=== PATIENT | male | born 1945 | race Caucasian/White ===

== ENCOUNTER 2018-06-25 17:08 | Day surgery (SDC) | payer OTHER ==
[2018-06-25 17:58] VITALS: BMI 28.5
--- NOTE | 2018-06-25 18:20 | PDOC ---
Documentation entered by Abdelrahman Mccloud SCRIBE, acting as scribe for Tia Sorto MD. Tia Sorto MD: This documentation has been prepared by the Rogers angulo Daniel, SCRIBE, under my direction and personally reviewed by me in its entirety. I confirm that the documentation accurately reflects all work, treatment, procedures, and medical decision making performed by me. History of Present Illness - General Chief Complaint: Injury Stated Complaint: LEFT KNEE PAIN History Source: Patient Exam Limitations: No Limitations - History of Present Illness Initial Comments: 06/25/18 18:04 The patient is a 73 year old male with a past medical history of depression and HLD here today for evaluation of left knee pain. The patient reports that tripped over a curb when crossing over a fence and fell on his left knee. He reports that he has pain, swelling, and limited range of motion due to the pain in his left knee, unable to ambulate with obvious swelling and deformity. no LOC or head injury. no prodromal sx. Patient denies headache, lightheadedness. Denies fever, chills. Denies chest pain, shortness of breath. Denies nausea, vomiting, diarrhea, abdominal pain. no paresthesias or weakness. Allergies: NKA PMD Dr Paredes 06/25/18 18:43 06/25/18 18:44 Past History - Past Medical History Allergies/Adverse Reactions: Allergies Allergy/AdvReac Type Severity Reaction Status Date / Time No Known Allergies Allergy Verified 06/25/18 17:10 Home Medications: Ambulatory Orders Fluoxetine HCl [Prozac] 10 mg PO DAILY 04/04/12 Simvastatin [Zocor] 20 mg PO HS 04/04/12 Hypercholesterolemia: Yes - Immunization History Immunization Up to Date: No - Suicide/Smoking/Psychosocial Hx Smoking Status: No Smoking History: Former smoker Have you smoked in the past 12 months: No Number of Cigarettes Smoked Daily: 0 Hx Alcohol Use: No Drug/Substance Use Hx: No Review of Systems - Review of Systems Able to Perform ROS?: Yes Comments:: 06/25/18 18:04 Constitutional: no fevers or chills. HEENT: no headache or dizziness. No congestion. No visual/hearing disturbances. CVS: no cp or syncope. Resp: no sob. No cough. Gastrointestinal: no abdominal pain, nausea or vomiting. Genitourinary: no urinary sx, hematuria. MUSCULOSKELETAL: +left knee pain and swelling. No neck or back pain. SKIN: no redness or skin changes, no discharge, no rash. No wounds. Hematologic: no easy bruising/bleeding. NEUROLOGIC: No headache, dizziness, LOC or altered mental status. No weakness, numbness or tingling. Psych: no anxiety or depression Allergic/Immunologic: no allergies All other systems reviewed and negative, or as documented in HPI. *Physical Exam - Vital Signs Last Vital Signs Temp Pulse Resp BP Pulse Ox 98.1 F 58 L 20 141/79 98 06/25/18 17:09 06/25/18 17:09 06/25/18 17:09 06/25/18 17:09 06/25/18 17:09 - Physical Exam Comments: 06/25/18 18:05 General: GCS 15 NAD, well appearing HEENT: NCAT, PERRL, EOMI. Airway intact. Neck: neck supple, ROM intact. Resp: Lungs clear bilaterally Chest: no clavicle or chest wall tenderness or crepitus CVS: RRR, 2+ pulses throughout. Abdomen: Abdomen soft, nontender, nondistended. Back: Back nontender, no midline spinal tenderness along cervical/thoracic/ lumbar spine, FROM, no stepoffs. MSK: Pelvis stable, Extremities symmetric +left knee tenderness with obvious deformity with crepitus of the left patella. +limited range of motion secondary to pain. +large effusion of left knee. soft compartment. no calf tenderness. 5/5 plantar and dorsiflexion. SILT. no laxity at knee jt. 2+ DP pulses bilaterally. Neuro: Alert, oriented appropriatelyno focal neuro deficits. Sensation and strength intact throughout. Skin: intact, normal color and well perfused. 06/25/18 18:44 06/25/18 18:50 ED Treatment Course - RADIOLOGY Radiology Studies Ordered: Category Date Time Status KNEE 4 POS-LEFT [RAD] Stat Radiology 06/25/18 17:12 Taken Medical Decision Making - Medical Decision Making 06/25/18 18:18 VS reviewed, wnl Xray left knee with normal joint space alignment, +acute fracture with displacement and widening of patella. +moderate joint effusion. declined analgesia knee immobilizer provided for immobilization, rest ice and elevate extremity. ortho cs with Dr Ulloa, operation can be arranged tomorrow at [facility] NPO after midnight. preop labs, txs, ekg. admit to hospitalist service observation for operative management of patella fx. s/o to [facility], admit to [facility] under Dr Garza 06/25/18 18:49 06/25/18 18:49 *DC/Admit/Observation/Transfer Diagnosis at time of Disposition: Left patella fracture Qualifiers: Encounter type: initial encounter Fracture type: closed Fracture morphology: unspecified fracture morphology Fracture alignment: displaced Qualified Code(s) : S82.002A - Unspecified fracture of left patella, initial encounter for closed fracture - Discharge Dispostion Condition at time of disposition: Fair Decision to Admit order: Yes Decision to Admit order Date/Time: Decision to Admit Order Category Date Time Status Decision to Admit to Hospital Routine Admission 06/25/18 18:16 Ordered - Referrals Referrals: Justice Cerrato MD [Primary Care Provider] - - Patient Instructions - Post Discharge Activity
[2018-06-25 19:23] LABS: BASO % 2.1 % (0-2.0); EOS % 2.5 % (0-4.5); HEMATOCRIT 45.2 % (35.4-49); MCH 30.5 pg (25.7-33.7); MCHC 33.1 g/dl (32.0-35.9); MEAN CELL VOLUME 92.1 fl (80-96); MEAN PLT VOLUME 10.2 fl (7.5-11.1); MONO % 6.9 % (3.8-10.2); NEUT % 76.5 % (42.8-82.8); PLATELET COUNT 159 K/MM3 (134-434); RBC 4.91 M/mm3 (4.00-5.60); RDW 12.5 % (11.9-15.9); WHITE BLOOD COUNT 9.3 K/mm3 (4.0-10.8)
[2018-06-25 19:32] LABS: ALBUMIN 4.3 g/dl (3.4-5.0); BILIRUBIN,TOTAL 0.7 mg/dl (0.2-1); CREATININE 0.9 mg/dl (0.55-1.3); TOT PROT 7.4 g/dl (6.4-8.2)
[2018-06-25 19:34] LABS: POTASSIUM 5.5 mmol/L (3.5-5.1)
[2018-06-25] MEDS ORDERED: SODIUM POLYSTYRENE SULFONATE 15 GM/60 ML BOTTLE PO ONE (19:35)
[2018-06-25 19:36] LABS: INR 1.04 (0.82-1.09); PROTHROMBIN TIME (PATIENT) 11.6 SEC (10.2-13.0)
--- NOTE | 2018-06-25 21:15 | HP ---
CHIEF COMPLAINT: L- Knee Pain PCP: Justice Cerrato HISTORY OF PRESENT ILLNESS: This is a 73 y/o man who is active goes to the gym 3x/week. Who presents to the ED with left knee pain after falling from climbing a fence. Patient reports doping a 3 mi walk and attempted to climb a fence, missed his footing and fell onto his knee. He denies LOC. Patient denies numbness, tingling to his left leg. Patient denies fever, chills, cough, SIERRA, dizziness, SOB, CP, palpitations, AP, N/V/D, constipation, dysuria. ER course was notable for: (1) Left Knee Xray- Displaced left patellar fx (2) K- 5.5 (3) Recent Travel: None PAST MEDICAL HISTORY: Hyperlipidemia Depression PAST SURGICAL HISTORY: Angiogram Social History: Smoking: Former 40 yrs ago Alcohol: Former Drugs: Denies Family History: Allergies No Known Allergies Allergy (Verified 06/25/18 17:10) HOME MEDICATIONS: Home Medications Medication Instructions Recorded Fluoxetine HCl [Prozac] 10 mg PO DAILY 04/04/12 Simvastatin [Zocor] 20 mg PO HS 04/04/12 REVIEW OF SYSTEMS CONSTITUTIONAL: Absent: fever, chills, diaphoresis, generalized weakness, malaise, loss of appetite, weight change HEENT: Absent: rhinorrhea, nasal congestion, throat pain, throat swelling, difficulty swallowing, mouth swelling, ear pain, eye pain, visual changes CARDIOVASCULAR: Absent: chest pain, syncope, palpitations, irregular heart rate, lightheadedness , peripheral edema RESPIRATORY: Absent: cough, shortness of breath, dyspnea with exertion, orthopnea, wheezing, stridor, hemoptysis GASTROINTESTINAL: Absent: abdominal pain, abdominal distension, nausea, vomiting, diarrhea, constipation, melena, hematochezia GENITOURINARY: Absent: dysuria, frequency, urgency, hesitancy, hematuria, flank pain, genital pain MUSCULOSKELETAL: left knee pain, joint swelling Absent: myalgia, arthralgia, back pain, neck pain SKIN: Absent: rash, itching, pallor HEMATOLOGIC/IMMUNOLOGIC: Absent: easy bleeding, easy bruising, lymphadenopathy, frequent infections ENDOCRINE: Absent: unexplained weight gain, unexplained weight loss, heat intolerance, cold intolerance NEUROLOGIC: Absent: headache, focal weakness or paresthesias, dizziness, unsteady gait, seizure, mental status changes, bladder or bowel incontinence PSYCHIATRIC: Absent: anxiety, depression, suicidal or homicidal ideation, hallucinations. PHYSICAL EXAMINATION Vital Signs - 24 hr 06/25/18 17:09 Temperature 98.1 F Pulse Rate 58 L Respiratory 20 Rate Blood Pressure 141/79 O2 Sat by Pulse 98 Oximetry (%) GENERAL: Awake, alert, and fully oriented, in no acute distress. HEAD: Normal with no signs of trauma. EYES: Pupils equal, round and reactive to light, extraocular movements intact, sclera anicteric, conjunctiva clear. No lid lag. EARS, NOSE, THROAT: Ears normal, nares patent, oropharynx clear without exudates. Moist mucous membranes. NECK: Normal range of motion, supple without lymphadenopathy, JVD, or masses. LUNGS: Breath sounds equal, clear to auscultation bilaterally. No wheezes, and no crackles. No accessory muscle use. HEART: Regular rate and rhythm, normal S1 and S2 without murmur, rub or gallop. ABDOMEN: Soft, nontender, not distended, normoactive bowel sounds, no guarding, no rebound, no masses. No hepatomegaly or splenomegaly. MUSCULOSKELETAL: Normal range of motion at RUE, RLE, LUE joints. No CVA tenderness. Limited LLE. + deformities or tenderness, edema. + Knee Immbolizer UPPER EXTREMITIES: 2+ pulses, warm, well-perfused. No cyanosis. No clubbing. No peripheral edema. LOWER EXTREMITIES: 2+ pulses, warm, well-perfused. No calf tenderness. No peripheral edema. NEUROLOGICAL: Cranial nerves II-XII intact. Normal speech. Gait not observed. PSYCHIATRIC: Cooperative. Good eye contact. Appropriate mood and affect. SKIN: Warm, dry, normal turgor, no rashes or lesions noted, normal capillary refill. Laboratory Results - last 24 hr 06/25/18 06/25/18 06/25/18 19:08 19:08 19:08 WBC 9.3 RBC 4.91 Hgb 15.0 Hct 45.2 MCV 92.1 MCH 30.5 MCHC 33.1 RDW 12.5 Plt Count 159 MPV 10.2 Absolute Neuts (auto) 7.2 Neutrophils % 76.5 Lymphocytes % 12.0 Monocytes % 6.9 Eosinophils % 2.5 Basophils % 2.1 H PT with INR INR PTT (Actin FS) 25.6 Sodium 135 L Potassium 5.5 H Chloride 100 Carbon Dioxide 25 Anion Gap 10 BUN 18 Creatinine 0.9 Est GFR (CKD-EPI)AfAm 97.86 Est GFR (CKD-EPI)NonAf 84.43 Random Glucose 110 H Calcium 10.0 Total Bilirubin 0.7 AST 33 ALT 30 Alkaline Phosphatase 56 Total Protein 7.4 Albumin 4.3 06/25/18 19:08 WBC RBC Hgb Hct MCV MCH MCHC RDW Plt Count MPV Absolute Neuts (auto) Neutrophils % Lymphocytes % Monocytes % Eosinophils % Basophils % PT with INR 11.6 INR 1.04 PTT (Actin FS) Sodium Potassium Chloride Carbon Dioxide Anion Gap BUN Creatinine Est GFR (CKD-EPI)AfAm Est GFR (CKD-EPI)NonAf Random Glucose Calcium Total Bilirubin AST ALT Alkaline Phosphatase Total Protein Albumin ASSESSMENT/PLAN: This is a 73 y/o man placed in Observation for Displaced Left Patellar Fracture for further evaluation of their emergent condition. Plan: See Problem List FEN D51/2NS@75ml/hr Replete lytes prn NPO DVT ppx SCDs Dispo: Observation Problem List - Problem (1) Left patella fracture Assessment/Plan: s/p fall L- knee xray- left patella fx, joint effusion Appreciate Ortho consult- notified by ED attending- OR tomorrow Knee Immobilizer Elevate extremity NPO after midnight IVF Morphine Sulfate prn CBC, BMP in am EKG- junctional rhythm 47 bpm, new compared to prior study SB Consider Cardiology consult for surgical clearance Code(s): S82.002A - UNSP FRACTURE OF LEFT PATELLA, INIT FOR CLOS FX Qualifiers: Encounter type: initial encounter Fracture type: closed Fracture morphology: unspecified fracture morphology Fracture alignment: displaced Qualified Code(s): S82.002A - Unspecified fracture of left patella, initial encounter for closed fracture (2) Hyperkalemia Assessment/Plan: Kayexalate po x1 now EKG reviewed- no peaked Ts Repeat BMP in am Code(s): E87.5 - HYPERKALEMIA (3) Depression Assessment/Plan: stable Continue Prozac Code(s): F32.9 - MAJOR DEPRESSIVE DISORDER, SINGLE EPISODE, UNSPECIFIED (4) HLD (hyperlipidemia) Assessment/Plan: stable Continue home med Code(s): E78.5 - HYPERLIPIDEMIA, UNSPECIFIED Visit type - Emergency Visit Emergency Visit: Yes ED Registration Date: 06/25/18 Care time: The patient presented to the Emergency Department on the above date and was hospitalized for further evaluation of their emergent condition. - New Patient This patient is new to me today: Yes Date on this admission: 06/25/18 - Critical Care Critical Care patient: No
[2018-06-25] MEDS: ATORVASTATIN CA 10 MG TABLET (FP) PO SCH (22:06)
--- NOTE | 2018-06-26 07:52 | PN ---
Physical Exam: SUBJECTIVE: Patient seen and examined at bedside. Pain is controlled. OBJECTIVE: Vital Signs Period Temp Pulse Resp BP Sys/[place] Pulse Ox Last 24 Hr 98.1 F-98.2 F 56-60 18-20 127-141/67-79 97-99 GENERAL: The patient is awake, alert, and fully oriented, in no acute distress. LUNGS: Breath sounds equal, clear to auscultation bilaterally, no wheezes, no crackles, no accessory muscle use. HEART: Regular rate and rhythm, S1, S2 ABDOMEN: Soft, nontender, nondistended EXTREMITIES: left leg in immobilizer; left foot warm, well-perfused, 2+DP pulse NEUROLOGICAL: Cranial nerves II through XII grossly intact. Normal speech, gait not observed. Laboratory Results - last 24 hr 06/25/18 06/25/18 06/25/18 19:08 19:08 19:08 WBC 9.3 RBC 4.91 Hgb 15.0 Hct 45.2 MCV 92.1 MCH 30.5 MCHC 33.1 RDW 12.5 Plt Count 159 MPV 10.2 Absolute Neuts (auto) 7.2 Neutrophils % 76.5 Lymphocytes % 12.0 Monocytes % 6.9 Eosinophils % 2.5 Basophils % 2.1 H PT with INR INR PTT (Actin FS) 25.6 Sodium 135 L Potassium 5.5 H Chloride 100 Carbon Dioxide 25 Anion Gap 10 BUN 18 Creatinine 0.9 Est GFR (CKD-EPI)AfAm 97.86 Est GFR (CKD-EPI)NonAf 84.43 Random Glucose 110 H Calcium 10.0 Total Bilirubin 0.7 AST 33 ALT 30 Alkaline Phosphatase 56 Total Protein 7.4 Albumin 4.3 06/25/18 19:08 WBC RBC Hgb Hct MCV MCH MCHC RDW Plt Count MPV Absolute Neuts (auto) Neutrophils % Lymphocytes % Monocytes % Eosinophils % Basophils % PT with INR 11.6 INR 1.04 PTT (Actin FS) Sodium Potassium Chloride Carbon Dioxide Anion Gap BUN Creatinine Est GFR (CKD-EPI)AfAm Est GFR (CKD-EPI)NonAf Random Glucose Calcium Total Bilirubin AST ALT Alkaline Phosphatase Total Protein Albumin Active Medications Generic Name Dose Route Start Last Admin Trade Name Freq PRN Reason Stop Dose Admin Atorvastatin Calcium 10 mg 06/25/18 22:00 06/25/18 22:06 Lipitor - PO 10 mg HS CARRI Administration Fluoxetine HCl 10 mg 06/26/18 10:00 Prozac - PO DAILY CARRI Dextrose/Sodium Chloride 1,000 mls @ 75 mls/hr 06/26/18 00:01 D5-1/2ns - IV ASDIR CARRI Morphine Sulfate 4 mg 06/25/18 21:33 Morphine Sulfate IVPUSH Q6H PRN PAIN LEVEL 7 - 10 ASSESSMENT/PLAN: 73 year-old male with a PMH significant for HLD and depression admitted for a displaced fracture of the left patella requiring surgical repair. Displaced fracture of the left patella --to OR later today with Dr. Ulloa Hyperlipidemia --holding PO meds Depression --holding PO meds Hyperkalemia, resolved --treated in ED with kayexelate x 1 FEN Fluids: D51/2@75mL/hr Electrolytes: replete as indicated Nutrition: NPO DVT prophylaxis: SCDs Physical therapy Dispo: continues to require inpatient care. Full code. Visit type - Emergency Visit Emergency Visit: Yes Care time: The patient presented to the Emergency Department on the above date and was hospitalized for further evaluation of their emergent condition. - New Patient This patient is new to me today: Yes Date on this admission: 06/27/18 - Critical Care Critical Care patient: No
[2018-06-26 08:21] LABS: BASO % 0.3 % (0-2.0); EOS % 3.6 % (0-4.5); HEMATOCRIT 39.1 % (35.4-49); HEMOGLOBIN 13.5 GM/dl (11.7-16.9); LYMPH % 16.8 % (8-40); MCH 31.7 pg (25.7-33.7); MCHC 34.4 g/dl (32.0-35.9); MEAN CELL VOLUME 92.1 fl (80-96); MEAN PLT VOLUME 9.9 fl (7.5-11.1); MONO % 9.3 % (3.8-10.2); PLATELET COUNT 134 K/MM3 (134-434); RBC 4.25 M/mm3 (4.00-5.60); RDW 12.5 % (11.9-15.9); WHITE BLOOD COUNT 7.6 K/mm3 (4.0-10.8)
[2018-06-26 08:51] LABS: CALCIUM 8.7 mg/dl (8.5-10); CREATININE 0.9 mg/dl (0.55-1.3); POTASSIUM 4.1 mmol/L (3.5-5.1)
[2018-06-26] MEDS ORDERED: PT OWN MED DRAWER 7, Y5N ONE (09:29)
[2018-06-26] MEDS: morphine SULFATE 4 MG/ML VIAL IVPUSH PRN (09:37)
[2018-06-26] MEDS: DEXTROSE 5%-0.45% SALINE 1,000 ML IV SCH (09:39)
[2018-06-26] MEDS: FLUoxetine HCL 10 MG CAPSULE (FP) PO SCH (09:39)
--- NOTE | 2018-06-26 12:13 | EKG ---
Test Reason : Blood Pressure : / mmHG Vent. Rate : 047 BPM Atrial Rate : 048 BPM P-R Int : 000 ms QRS Dur : 082 ms QT Int : 456 ms P-R-T Axes : 000 -09 034 degrees QTc Int : 403 ms Sinus bradycardia NONSPECIFIC ST AND T WAVE ABNORMALITY ABNORMAL ECG WHEN COMPARED WITH ECG OF 04-APR-2012 12:03, JUNCTIONAL RHYTHM HAS REPLACED SINUS RHYTHM NONSPECIFIC T WAVE ABNORMALITY NOW EVIDENT IN LATERAL LEADS Confirmed by MD Alexi, Abdelrahman ([id number]) on 06/26/2018 12:13:15 PM Referred By: Confirmed By:Abdelrahman Truong MD
[2018-06-26] MEDS ORDERED: ROPIVACAINE HCL 0.5% 30ML VIAL ONE (13:37)
[2018-06-26] MEDS ORDERED: MIDAZOLAM HCL 2 MG/2 ML SINGLE DOSE VIAL ONE (13:37)
[2018-06-26] MEDS ORDERED: ceFAZolin SODIUM 1 GM VIAL ONE (14:55)
[2018-06-26] MEDS ORDERED: ePHEDrine SULFATE 50 MG/1 ML AMPULE ONE (14:57)
--- NOTE | 2018-06-26 16:06 | OP ---
Operative Note - Note: Operative Date: 06/26/18 (angel) Pre-Operative Diagnosis: left patella fx Operation: left patella orif Post-Operative Diagnosis: Same as Pre-op Surgeon: Michael Ulloa Special Services Agent: Markell Dugan Anesthesiologist/[employer] CONCR[employer]E [employer]ONWORKER: Ebenezer Rojo Anesthesia: Spinal, Local Estimated Blood Loss (mls): 50 Operative Report Dictated: Yes
--- NOTE | 2018-06-26 16:37 | CONS ---
ORTHOPEDIC CONSULTATION/RAYNE PURI DATE OF CONSULTATION: 06/26/2018 HISTORY OF PRESENT ILLNESS: The patient is a 73-year-old male who is status post fall last night, was found in the emergency room to have a displaced left patella fracture and was admitted to the hospital for operative intervention. PAST MEDICAL HISTORY: The patient denies any significant past medical history. PHYSICAL EXAMINATION:Extremities: He has an obvious gap in his patella anteriorly with a great deal of swelling. Calf is soft, nontender. Unable to straight-leg raise, even when gravity is omitted. Excellent stability varus/valgus and anterior/posterior. Good range of motion hip, ankle and toes. Neurovascular intact. STUDIES: X-rays taken last night in the emergency room showed a displaced left patella fracture, transverse portion. IMPRESSION: Transverse displaced left patellar fracture. PLAN: Risks, benefits and alternatives discussed with the patient and with in great detail. They elect for ORIF today. Zuleika [id number]
--- NOTE | 2018-06-26 16:58 | OP ---
DATE OF OPERATION: 06/26/2018 PREOPERATIVE DIAGNOSIS: Displaced left transverse patella fracture. POSTOPERATIVE DIAGNOSIS: Displaced left transverse patella fracture. PROCEDURE: Open reduction, internal fixation left patella fracture. SURGICAL ATTENDING: Alonso Ulloa M.D. DIRECTOR PAID MEDIA: Yanick Kendall ANESTHESIA: Regional and spinal. CLOSURE: Three 4.0 cannulated screws of appropriate length and one AO cerclage wire for patella. Number 1 Vicryl for retinaculum, 2-0 Vicryl for paratenon subcutaneous, gary for skin. ESTIMATED BLOOD LOSS: Negligible. COMPLICATIONS: None. CONDITION: To recovery in stable condition. DESCRIPTION OF OPERATIVE PROCEDURE: Patient taken to the operating room on June 26, 2018. Regional and spinal anesthesia was administered by the anesthesiologist. IV Kefzol was administered prophylactically prior to the case. A well padded pneumatic tourniquet was placed on the left thigh. The left lower extremity was prepped and draped in the usual sterile fashion. An 8 to 10 cm longitudinal incision is centered over the patella, incised. Hemostasis assured with Bovie cautery. Sharp dissection was carried down to the level of the fracture. The hematoma was evacuated from the fracture, and an amount of antibiotic irrigation was used to clean up around the fracture. Periosteum was feathered back both proximally and distally. A large tenaculum reduction clamp was used to obtain anatomical reduction. This was confirmed by fluoroscopy as well as by palpating through the retinacular tear on the articular surface to be smooth. Three guidewires from the 4-0 cannulated screw set were drilled from inferior to superior, achieving excellent fixation. They were measured, and screwed with the appropriate size of lag screw. fixation with an AO cerclage wire was placed through, two lateral screws in the [id number] formation in tension and extension. Excellent position of hardware confirmed by fluoroscopy. The wires were pulled. The retinaculum was closed using number 1 Vicryl interrupted suture. The paratenon was run using 2-0 Vicryl. 2-0 Vicryl was used to close subcutaneous, and gary for skin. Sterile pressure dressings were applied, knee immobilizer with the knee in extension was applied. Patient awakened from anesthesia and transferred to recovery in stable condition. No complications. Estimated blood loss negligible. ALONSO ULLOA M.D. [id number]
[2018-06-26] MEDS: ATORVASTATIN CA 10 MG TABLET (FP) PO SCH (21:12)
[2018-06-26] MEDS: CEFTRIAXONE 2 GM-D5W BAG 2 GM/50 ML BAG IVPB SCH (23:50)
[2018-06-27] MEDS: DEXTROSE 5%-0.45% SALINE 1,000 ML IV SCH (06:23)
[2018-06-27] MEDS: CEFTRIAXONE 2 GM-D5W BAG 2 GM/50 ML BAG IVPB SCH (06:23)
[2018-06-27] MEDS: morphine SULFATE 4 MG/ML VIAL IVPUSH PRN (08:22)
--- NOTE | 2018-06-27 08:26 | PN ---
Progress Note (short form) - Note Progress Note: Ortho Pt seen and examined s/p left patella ORIF pod #1 Selected Entries 06/27/18 01:57 Temperature 98.4 F Pulse Rate 60 Respiratory 18 Rate Blood Pressure 127/69 Laboratory Tests 06/27/18 07:40 WBC Pending Hgb Pending Hct Pending Plt Count Pending dressing c/d/i, calf soft, nt a/p knee immobilizer- wbat with brace on PT eval pain control d/c home today f/u in 1 week
[2018-06-27 08:56] LABS: HEMATOCRIT 36.3 % (35.4-49); HEMOGLOBIN 12.7 GM/dl (11.7-16.9); MCH 32.2 pg (25.7-33.7); MEAN PLT VOLUME 10.8 fl (7.5-11.1); PLATELET COUNT 112 K/MM3 (134-434); RBC 3.94 M/mm3 (4.00-5.60); RDW 12.4 % (11.9-15.9); WHITE BLOOD COUNT 9.1 K/mm3 (4.0-10.8)
[2018-06-27 09:04] VITALS: BP 121/71; PULSE 67; TEMP 98
[2018-06-27 09:11] LABS: CALCIUM 8.7 mg/dl (8.5-10); CREATININE 0.8 mg/dl (0.55-1.3); MAGNESIUM 1.6 mg/dL (1.8-2.4); POTASSIUM 4.5 mmol/L (3.5-5.1)
[2018-06-27] MEDS ORDERED: MAGNESIUM SULF 50% (8.12 MEQ/2 ML-1 GM VIAL) IVPB ONE (09:24)
[2018-06-27] MEDS ORDERED: ACETAMINOPHEN 325 MG TABLET (FP) PO PRN (09:26)
[2018-06-27] MEDS ORDERED: oxyCODONE HCL 5 MG TABLET PO PRN (09:28)
[2018-06-27] MEDS ORDERED: PT OWN MED DRAWER 7, Y5N ONE (09:48)
[2018-06-27] MEDS ORDERED: MAGNESIUM SULFATE IN WATER 2 GM/50 ML IVPB IVPB ONE (10:00)
[2018-06-27] MEDS: FLUoxetine HCL 10 MG CAPSULE (FP) PO SCH (10:11)
== END 2018-06-27 11:44 | disposition home or self-care (01) ==
LOC: FER 17:08 → SUPCPDRO 17:08 → INTOOBSV 18:16 → FM/S 18:16 → UNDOADMOB 18:16 → FASUSAT 06-26 13:08 → FM/S 06-26 13:08 → FASUSAT 06-27 11:44
PROVIDERS: ATTEND Nurse Practitioner Acute Care
PROC: 0QSF04Z Reposition Left Patella with Internal Fixation Device, Open Approach (ICD-10-PCS; principal; 2018-06-26 15:07)
DX: S82.032A Displaced transverse fracture of left patella, initial encounter for closed fracture (principal); W01.0XXA Fall on same level from slipping, tripping and stumbling without subsequent striking against object, initial encounter; Y93.01 Activity, walking, marching and hiking; Y92.480 Sidewalk as the place of occurrence of the external cause
CPT/HCPCS: 36415; 71045-TC-FY; 73560-TC-LT-FY; 73564-TC-LT-FY; 80048; 80053; 83735; 85025; 85027; 85610; 85730; 86850; 86900; 86901; 93005; 94760; 97116-GP; 97162-GP; 99283-25